=== PATIENT | male | born 1995 | race Two or more races ===

== ENCOUNTER 2019-06-10 14:52 | Emergency (ER) | payer MEDICAID ==
[~2019-06-10] VITALS: Ht 172.7 cm; Wt 99.8 kg
[2019-06-10] MEDS ORDERED: NKM (15:01)
--- NOTE | 2019-06-10 15:05 | NUR ---
ED Nurse Note: Patient walked into ED from the street, c/o abdominal pain upper epigastric area non radiating starting this morning. patient denies any nausea/vomiting/ or diarrhea. patient is alert awake x4 ambulatory steady gait, breathing unlabored and even, speaking in full sentences.
--- NOTE | 2019-06-10 15:26 | Emergency Room Report ---
History of Present Illness General Chief Complaint: Abdominal Pain Source: Patient Present Illness HPI 23-year-old male patient presents the ER complaining of upper abdominal pain for the past day. States the pain comes and goes. Denies fever vomiting chills. Denies vomiting or diarrhea. Reports able to pass gas. Denies blood in stool or urine. Denies pain with urinating. Reports history of eating hot Cheetos. Denies other aggravating or relieving factors. Allergies: Coded Allergies: No Known Allergies (Unverified , 06/10/19) Patient History Past Medical History: see triage record Reviewed Nursing Documentation: PMH: Agreed; PSxH: Agreed Nursing Documentation-PMH Past Medical History: No Stated History Review of Systems All Other Systems: negative except mentioned in HPI Physical Exam Vital Signs Date Time Temp Pulse Resp B/P (MAP) Pulse Ox O2 Delivery O2 Flow Rate FiO2 06/10/19 14:58 98.2 96 15 133/82 (99) 96 Room Air Sp02 EP Interpretation: reviewed, normal General Appearance: well appearing, no apparent distress, alert, GCS 15, non- toxic Head: normocephalic, atraumatic Eyes: bilateral eye normal inspection, bilateral eye PERRL ENT: hearing grossly normal, normal pharynx, no angioedema, normal voice, uvula midline, moist mucus membranes Neck: full range of motion Respiratory: lungs clear, normal breath sounds, no rhonchi, no respiratory distress, no accessory muscle use, no wheezing, speaking full sentences Cardiovascular #1: regular rate, rhythm, no edema Gastrointestinal: non tender, soft, no mass, non-distended, no guarding, no hernia, no pulsatile mass, no rebound, other - Negative Rovsing, negative Mc Genitourinary: no CVA tenderness Musculoskeletal: back normal, digits/nails normal, gait/station normal, normal range of motion, non-tender Neurologic: alert, oriented x3, responsive, motor strength/tone normal, sensory intact Psychiatric: mood/affect normal Lymphatic: no adenopathy Medical Decision Making PA Attestation Dr. Simmons is my supervising Physician whom patient management has been discussed with. Diagnostic Impression: Primary Impression: Abdominal pain ER Course Pt. presents to the ED c/o abdominal pain. Ddx considered but are not limited to UTI, cholelithiasis, cholecystitis, pancreatitis, appendicitis, diverticulitis, constipation, drug use. Vital signs: are WNL, pt. is afebrile ER COURSE: Physical exam benign. No abdominal tenderness palpation. Negative Rovsing, negative obturator, does not require CT abdomen. Did not have any pain with urinating, no blood in urine, low suspicion for UTI. Provide patient with food while in the ER. Patient ate and drink without difficulty. Denies pain currently. DISCHARGE: At this time pt. is stable for d/c to home. Patient resting comfortably, in no acute distress, nontoxic appearing, talking without difficulty. Rx provided to patient. Patient to take medications as instructed Will provide with patient care instructions and any necessary prescriptions. Care plan and follow-up instructions provided. Patient instructed to follow-up with primary care provider in 3 - 5 days. Patient questions asked and answered. Patient reports understanding and agreement to treatment plan. ER precautions given. Patient instructed to return to ER immediately for any new or worsening of symptoms including but not limited to increasing SOB, persistent fever, worsening of pain symptoms, intractable vomiting, blood in stool, urine, and/or emesis. - Please note that this Emergency Department Report was dictated using [employer] technology software, occasionally this can lead to erroneous entry secondary to interpretation by the dictation equipment. Last Vital Signs Date Time Temp Pulse Resp B/P (MAP) Pulse Ox O2 Delivery O2 Flow Rate FiO2 06/10/19 14:58 98.2 96 15 133/82 (99) 96 Room Air Status: improved Disposition: HOME, SELF-CARE Condition: Stable Patient Instructions: Abdominal Pain, Adult Additional Instructions: Followup with primary care provider in 3 -5 days. Take medications as directed. Patient questions asked and answered. ER precautions given, patient instructed to return to ER immediately for any new or worsening of symptoms. Chepe Calles Jun 10, 2019 15:26
--- NOTE | 2019-06-10 15:50 | NUR ---
ED Nurse Note: sandwiches, water, juice provided to the patient. instructed patient to refrain from eating spicy food per PHOENIX Cabrera's order. patient verbalized understanding. patient is wearing weather- appropriate clothings.
[2019-06-10 15:56] VITALS: BP 121/82
--- NOTE | 2019-06-10 15:56 | NUR ---
ER DISCHARGE NOTE: Patient is being discharged from medical care. Awake, alert and oriented x4 ambulatory steady gait, breathing unlabored and even, speaking in full sentences. After care instructions, including referral to community resources were given. Patient verbalized understanding of After care instructions; at this time patient does not request medications, equipment or placement. Patient signed patient consent in the medical record for patient destination upon discharge. All medical devices such as ID band were removed. Patient ambulated out with all personal belongings with steady gait.pt was given dc instructions, pt was able to verbalize understanding,with stable vital signs.
== END 2019-06-10 15:56 | disposition home or self-care (01) ==
LOC: EMR 15:50
DX: R10.10 Upper abdominal pain, unspecified (principal)
CPT/HCPCS: 99281